=== PATIENT | male | born 1960 | race Caucasian/White ===

== ENCOUNTER 2020-12-12 16:19 | Inpatient (IN) | payer MEDICAID ==
[~2020-12-12] VITALS: Ht 165.1 cm; Wt 83.9 kg
[2020-12-12 17:27] LABS: HEMATOCRIT. 45.1 % (42.0-52.0); HEMOGLOBIN. 15.1 g/dL (14.0-18.0); LYMPHOCYTES % 23.7 % (20.0-50.0); MEAN CORPUSCULAR HEMOGLOBIN 29.1 pg (28.0-32.0); MEAN CORPUSCULAR VOLUME 86.8 fL (80.0-94.0); MEAN PLATELET VOLUME 8.1 fl (7.4-10.4); NEUTROPHILS % 65.3 % (40.0-76.0); PLATELET 230 x1000/uL (130-400); RED CELL DISTRIBUTION WIDTH 14.3 % (11.6-14.6)
[2020-12-12 17:32] LABS: CHLORIDE 106 mEq/L (98-107)
[2020-12-12 17:35] LABS: PROTHROMBIN TIME 10.7 sec (9.6-11.0)
[2020-12-12 17:36] LABS: ETHANOL BLOOD < 10 mg/dL
[2020-12-12 17:40] LABS: CREATINE KINASE 206 IU/L (39-308)
[2020-12-12 17:45] LABS: CLARITY URINE CLEAR (CLEAR); COLOR URINE YELLOW (YELLOW); KETONES URINE NEGATIVE (NEGATIVE); LEUKOCYTE ESTERASE URINE NEGATIVE (NEGATIVE); NITRITE URINE NEGATIVE (NEGATIVE); OCCULT BLOOD URINE NEGATIVE (NEGATIVE); PROTEIN URINE NEGATIVE (NEGATIVE); SPECIFIC GRAVITY URINE 1.014 (1.005-1.030)
[2020-12-12 17:53] LABS: *BARBITURATES SCREEN URINE NEGATIVE (NEGATIVE); *BENZODIAZEPINES SCREEN URINE NEGATIVE (NEGATIVE); CANNABINOID URINE SCREEN NEGATIVE (NEGATIVE); METHADONE URINE SCREEN NEGATIVE (NEGATIVE)
[2020-12-12 17:55] LABS: *AMPHETAMINES SCREEN URINE NEGATIVE (NEGATIVE); *COCAINE SCREEN URINE NEGATIVE (NEGATIVE); OPIATES URINE SCREEN PRESUMTIVE POSITIVE (NEGATIVE); PHENCYCLIDINE URINE SCREEN NEGATIVE (NEGATIVE)
[2020-12-12] MEDS ORDERED: SODIUM CHLORIDE 0.9% 500 ML IV ONE (18:00)
[2020-12-12] MEDS ORDERED: MAGNESIUM/ALUMINUM HYDROXIDE/SIMETHICONE 30ML UDC PO PRN (20:30)
[2020-12-12] MEDS ORDERED: CLONIDINE 0.1MG TABLET PO PRN (20:30)
[2020-12-12] MEDS ORDERED: IPRATROPIUM/ALBUTEROL 0.5-3(2.5)MG/3ML NEB NEB PRN (20:30)
[2020-12-12] MEDS ORDERED: GUAIFENESIN 200MG/10ML SUGAR FREE UDC PO PRN (20:30)
[2020-12-12] MEDS ORDERED: DOCUSATE SODIUM 100MG CAPSULE PO PRN (20:30)
[2020-12-12] MEDS ORDERED: DEXTROSE 50% WATER 50ML SYRINGE IV PRN (20:30)
[2020-12-12] MEDS ORDERED: NITROGLYCERIN 0.4MG TABLET SL SL PRN (20:30)
[2020-12-12] MEDS ORDERED: ONDANSETRON HCL 4MG/2ML INJ IV PRN (20:30)
[2020-12-12] MEDS ORDERED: ACETAMINOPHEN 325MG TABLET PO PRN (20:30)
[2020-12-12] MEDS: KETOROLAC 15MG/ML VIAL IV PRN (20:54)
[2020-12-12] MEDS: BLOOD SUGAR DIAGNOSTIC STRIP TEST SCH (21:00)
[2020-12-12] MEDS: INSULIN LISPRO 100 UNITS/ML SUBCUT SCH (21:00)
[2020-12-12 22:15] LABS: T4 FREE 0.84 ng/dL (0.76-1.46)
[2020-12-12] MEDS: FAMOTIDINE 20MG TABLET PO SCH (22:55)
[2020-12-12] MEDS: ASCORBIC ACID 500 MG TABLET PO SCH (22:55)
[2020-12-12] MEDS: CEFTRIAXONE 1,000 MG in DEXTROSE 5% WATER 50 ML IV SCH (22:56)
[2020-12-12] MEDS: ENOXAPARIN 40MG/0.4ML SYR SUBCUT SCH (22:56)
[2020-12-12 22:58] LABS: FOLIC ACID (FOLATE) SERUM 13.7 ng/mL (>5.38)
[2020-12-13] VITALS (7 sets, daily range): BP systolic 106–131; BP diastolic 63–87
[2020-12-13] MEDS: ACETAMINOPHEN 325MG TABLET PO PRN (01:05)
[2020-12-13] MEDS: AZITHROMYCIN 500 MG in DEXT 5% WATER 250 ML IV SCH ×2 (01:05→21:22)
[2020-12-13] MEDS ORDERED: NA P230E RC (03:14)
[2020-12-13] MEDS ORDERED: MOM MT (03:14)
[2020-12-13] MEDS ORDERED: CLON0.1T PO (03:14)
[2020-12-13] MEDS ORDERED: LISI10TA26 MT (03:14)
[2020-12-13] MEDS ORDERED: GLIM4TAB36 MT (03:14)
[2020-12-13] MEDS ORDERED: SUMA50TA16 PO (03:14)
[2020-12-13] MEDS ORDERED: ATOR40TA70 MT (03:14)
[2020-12-13] MEDS ORDERED: ESCI10TA MT (03:14)
[2020-12-13] MEDS ORDERED: TEMA15CA5 MT (03:14)
[2020-12-13] MEDS ORDERED: MULT-624 PO (03:14)
[2020-12-13] MEDS ORDERED: BISA10SU62 RC (03:14)
[2020-12-13] MEDS ORDERED: CLOP75TA33 PO (03:14)
[2020-12-13] MEDS ORDERED: HYDR-4001 PO (03:14)
[2020-12-13] MEDS ORDERED: TOPUD PO (03:14)
[2020-12-13] MEDS ORDERED: METF-874 MT (03:14)
[2020-12-13] MEDS: BLOOD SUGAR DIAGNOSTIC STRIP TEST SCH ×4 (06:35→21:16)
[2020-12-13] MEDS: INSULIN LISPRO 100 UNITS/ML SUBCUT SCH ×4 (06:36→20:38)
[2020-12-13 07:21] LABS: BASOPHILS % 1.2 % (0.0-2.0); EOSINOPHILS % 4.8 % (0.0-5.0); HEMATOCRIT. 40.8 % (42.0-52.0); HEMOGLOBIN. 13.8 g/dL (14.0-18.0); LYMPHOCYTES % 34.2 % (20.0-50.0); MEAN CORPUSCULAR HEMOGLOBIN 29.3 pg (28.0-32.0); MEAN CORPUSCULAR VOLUME 86.7 fL (80.0-94.0); MEAN PLATELET VOLUME 8.6 fl (7.4-10.4); MONOCYTES % 8.1 % (2.0-8.0); NEUTROPHILS % 51.7 % (40.0-76.0); PLATELET 214 x1000/uL (130-400); RED BLOOD CELL COUNT 4.71 mill/uL (4.7-6.1)
[2020-12-13 07:38] LABS: CHLORIDE 111 mEq/L (98-107)
[2020-12-13 07:55] LABS: PHOSPHORUS 3.6 mg/dL (2.5-4.9)
[2020-12-13 07:58] LABS: CREATINE KINASE 155 IU/L (39-308)
[2020-12-13 08:00] LABS: CREATINE KINASE MB FRACTION 5.4 ng/mL (0.5-3.6)
[2020-12-13] MEDS ORDERED: PNEUMOCOCCAL 23-VAL P-SAC VAC 0.5 ML IM ONE (08:00)
[2020-12-13] MEDS: ASPIRIN 325MG EC TABLET PO SCH (08:52)
[2020-12-13] MEDS: ZINC SULFATE 220 MG ( 50 ) CAPSULE PO SCH (08:52)
[2020-12-13] MEDS: ASCORBIC ACID 500 MG TABLET PO SCH ×2 (08:52→20:39)
[2020-12-13] MEDS: FAMOTIDINE 20MG TABLET PO SCH ×2 (08:53→20:39)
[2020-12-13] MEDS: CHOLECALCIFEROL (D3) 1000 UNIT TABLET PO SCH (08:53)
[2020-12-13] MEDS ORDERED: CEFTRIAXONE 1 G PREMIX 50 ML IV SCH (09:00)
[2020-12-13] MEDS: KETOROLAC 15MG/ML VIAL IV PRN (10:00)
[2020-12-13] MEDS: ENOXAPARIN 40MG/0.4ML SYR SUBCUT SCH (20:39)
[2020-12-13] MEDS: CEFTRIAXONE 1,000 MG in DEXTROSE 5% WATER 50 ML IV SCH (20:39)
[2020-12-14] VITALS: BP 120/80
[2020-12-14 04:00] VITALS: BP 109/75
[2020-12-14] MEDS: KETOROLAC 15MG/ML VIAL IV PRN ×3 (04:50→20:13)
[2020-12-14] MEDS: BLOOD SUGAR DIAGNOSTIC STRIP TEST SCH ×4 (06:12→20:13)
[2020-12-14] MEDS: INSULIN LISPRO 100 UNITS/ML SUBCUT SCH ×4 (07:35→20:13)
[2020-12-14 08:00] VITALS: BP 110/85
[2020-12-14] MEDS: FAMOTIDINE 20MG TABLET PO SCH ×2 (09:11→20:11)
[2020-12-14] MEDS: ZINC SULFATE 220 MG ( 50 ) CAPSULE PO SCH (09:11)
[2020-12-14] MEDS: ASCORBIC ACID 500 MG TABLET PO SCH ×2 (09:11→20:11)
[2020-12-14] MEDS: ASPIRIN 325MG EC TABLET PO SCH (09:11)
[2020-12-14] MEDS: CHOLECALCIFEROL (D3) 1000 UNIT TABLET PO SCH (09:27)
[2020-12-14 12:00] VITALS: BP 135/84
[2020-12-14] MEDS ORDERED: LACTULOSE 20G/30ML UDC PO SCH (14:00)
[2020-12-14 16:00] VITALS: BP 131/80
[2020-12-14] MEDS ORDERED: LACTULOSE 20G/30ML UDC PO PRN (18:30)
[2020-12-14 20:00] VITALS: BP 116/72
[2020-12-14] MEDS: CEFTRIAXONE 1,000 MG in DEXTROSE 5% WATER 50 ML IV SCH (20:11)
[2020-12-14] MEDS: AZITHROMYCIN 500 MG in DEXT 5% WATER 250 ML IV SCH (22:15)
[2020-12-14] MEDS: ENOXAPARIN 40MG/0.4ML SYR SUBCUT SCH (22:15)
[2020-12-15] VITALS: BP 106/63
[2020-12-15 04:00] VITALS: BP 115/84
[2020-12-15] MEDS: BLOOD SUGAR DIAGNOSTIC STRIP TEST SCH ×4 (07:20→20:40)
[2020-12-15] MEDS: INSULIN LISPRO 100 UNITS/ML SUBCUT SCH ×4 (07:50→20:40)
[2020-12-15 08:00] VITALS: BP 140/84
[2020-12-15] MEDS: FAMOTIDINE 20MG TABLET PO SCH ×2 (09:31→20:37)
[2020-12-15] MEDS: ASCORBIC ACID 500 MG TABLET PO SCH ×2 (09:31→20:37)
[2020-12-15] MEDS: CHOLECALCIFEROL (D3) 1000 UNIT TABLET PO SCH (09:31)
[2020-12-15] MEDS: ZINC SULFATE 220 MG ( 50 ) CAPSULE PO SCH (09:31)
[2020-12-15] MEDS: KETOROLAC 15MG/ML VIAL IV PRN ×2 (09:51→20:40)
[2020-12-15] MEDS: ASPIRIN 325MG EC TABLET PO SCH (09:58)
[2020-12-15 12:00] VITALS: BP 144/91
[2020-12-15 16:00] VITALS: BP 142/96
[2020-12-15 20:00] VITALS: BP 113/71
[2020-12-15] MEDS: CEFTRIAXONE 1,000 MG in DEXTROSE 5% WATER 50 ML IV SCH (20:38)
[2020-12-15] MEDS: ENOXAPARIN 40MG/0.4ML SYR SUBCUT SCH (20:38)
[2020-12-15] MEDS: AZITHROMYCIN 500 MG in DEXT 5% WATER 250 ML IV SCH (21:43)
[2020-12-15] MEDS: ZOLPIDEM TARTRATE 5MG TABLET PO PRN (22:54)
[2020-12-16] VITALS: BP 125/89
[2020-12-16 04:00] VITALS: BP 119/83
[2020-12-16] MEDS: INSULIN LISPRO 100 UNITS/ML SUBCUT SCH ×4 (06:40→20:56)
[2020-12-16] MEDS: BLOOD SUGAR DIAGNOSTIC STRIP TEST SCH ×4 (06:40→20:30)
[2020-12-16 08:00] VITALS: BP 119/82
[2020-12-16] MEDS: KETOROLAC 15MG/ML VIAL IV PRN ×3 (08:22→20:29)
[2020-12-16] MEDS: ASCORBIC ACID 500 MG TABLET PO SCH ×2 (08:23→20:29)
[2020-12-16] MEDS: ZINC SULFATE 220 MG ( 50 ) CAPSULE PO SCH (08:23)
[2020-12-16] MEDS: ASPIRIN 325MG EC TABLET PO SCH (08:23)
[2020-12-16] MEDS: CHOLECALCIFEROL (D3) 1000 UNIT TABLET PO SCH (08:23)
[2020-12-16] MEDS: FAMOTIDINE 20MG TABLET PO SCH ×2 (08:23→20:29)
[2020-12-16 12:00] VITALS: BP 140/91
[2020-12-16 16:00] VITALS: BP 138/87
[2020-12-16] MEDS ORDERED: AZITHROMYCIN 500 MG TABLET PO SCH (17:00)
[2020-12-16 20:00] VITALS: BP 126/79
[2020-12-16] MEDS: CEFTRIAXONE 1,000 MG in DEXTROSE 5% WATER 50 ML IV SCH (20:29)
[2020-12-16] MEDS: ENOXAPARIN 40MG/0.4ML SYR SUBCUT SCH (20:30)
[2020-12-16] MEDS: ZOLPIDEM TARTRATE 5MG TABLET PO PRN (20:49)
[2020-12-17] VITALS: BP 116/73
[2020-12-17 04:00] VITALS: BP 109/59
[2020-12-17] MEDS: BLOOD SUGAR DIAGNOSTIC STRIP TEST SCH ×2 (07:31→12:53)
[2020-12-17] MEDS: INSULIN LISPRO 100 UNITS/ML SUBCUT SCH ×2 (07:31→12:50)
[2020-12-17] MEDS: CHOLECALCIFEROL (D3) 1000 UNIT TABLET PO SCH (08:09)
[2020-12-17] MEDS: ZINC SULFATE 220 MG ( 50 ) CAPSULE PO SCH (08:09)
[2020-12-17] MEDS: ASPIRIN 325MG EC TABLET PO SCH (08:09)
[2020-12-17] MEDS: ASCORBIC ACID 500 MG TABLET PO SCH (08:09)
[2020-12-17] MEDS: FAMOTIDINE 20MG TABLET PO SCH (08:09)
[2020-12-17] MEDS: KETOROLAC 15MG/ML VIAL IV PRN ×2 (08:10→14:28)
[2020-12-17 08:12] VITALS: BP 135/79
[2020-12-17] MEDS: ACETAMINOPHEN 325MG TABLET PO PRN (11:45)
[2020-12-17 12:18] VITALS: BP 138/93
[2020-12-17 15:06] VITALS: BP 135/79
[2020-12-17 16:00] VITALS: BP 141/91
== END 2020-12-17 16:55 | DRG 720 ==
LOC: ER 16:19 → MICUSO 18:17 → 6WST 21:51
PROVIDERS: ADMIT Internal Medicine; ATTEND Internal Medicine
DX: A41.9 Sepsis, unspecified organism (principal); I69.351 Hemiplegia and hemiparesis following cerebral infarction affecting right dominant side; E11.9 Type 2 diabetes mellitus without complications; E78.00 Pure hypercholesterolemia, unspecified; Z20.822 Contact with and (suspected) exposure to COVID-19; I10 Essential (primary) hypertension; Z79.4 Long term (current) use of insulin
CPT/HCPCS: 36415; 70551; 71045; 80053; 80305; 80320; 81003; 82140; 82550; 82553; 82607; 82746; 82962; 83036; 83540; 83550; 83605; 83615; 83880; 84100; 84145; 84439; 84443; 84484; 85025; 86850; 86900; 87426; 93005; 93970; 97162; 97166; 99285; J0456; J0696; J1650; J1815; J1885; J7040; J7060; G0480

== ENCOUNTER 2021-02-14 10:09 | Inpatient (IN) | payer MEDICAID ==
[~2021-02-14] VITALS: Ht 170.2 cm; Wt 71.7 kg
[~2021-02-14 10:09] MED LIST: ATOR40TA70 MT; BISA10SU62 RC; CLON0.1T PO; CLOP75TA33 PO; ESCI10TA MT; GLIM4TAB36 MT; HYDR-4001 PO; LISI10TA26 MT; METF-874 MT; MOM MT; MULT-624 PO; NA P230E RC; SUMA50TA16 PO; TEMA15CA5 MT; TOPUD PO
[2021-02-14 11:16] LABS: BASOPHILS % 2.2 % (0.0-2.0); EOSINOPHILS % 9.4 % (0.0-5.0); HEMATOCRIT. 41.3 % (42.0-52.0); LYMPHOCYTES % 32.3 % (20.0-50.0); MEAN CORPUSCULAR HEMOGLOBIN 29.1 pg (28.0-32.0); MEAN CORPUSCULAR VOLUME 85.9 fL (80.0-94.0); MEAN PLATELET VOLUME 8.5 fl (7.4-10.4); MONOCYTES % 5.9 % (2.0-8.0); NEUTROPHILS % 50.2 % (40.0-76.0); PLATELET 241 x1000/uL (130-400); RED BLOOD CELL COUNT 4.82 mill/uL (4.7-6.1); RED CELL DISTRIBUTION WIDTH 13.9 % (11.6-14.6)
[2021-02-14 11:22] LABS: CHLORIDE 105 mEq/L (98-107)
[2021-02-14 11:28] LABS: ETHANOL BLOOD < 10 mg/dL
[2021-02-14] MEDS ORDERED: MORPHINE SULFATE 4 MG/ML CPJ (NOT FOR IM USE) IV ONE (12:00)
[2021-02-14] MEDS ORDERED: ACETAMINOPHEN 325MG TABLET PO ONE (12:00)
[2021-02-14 12:29] LABS: *BARBITURATES SCREEN URINE NEGATIVE (NEGATIVE)
[2021-02-14 12:30] LABS: CANNABINOID URINE SCREEN NEGATIVE (NEGATIVE); PHENCYCLIDINE URINE SCREEN NEGATIVE (NEGATIVE)
[2021-02-14 12:32] LABS: *AMPHETAMINES SCREEN URINE NEGATIVE (NEGATIVE); *BENZODIAZEPINES SCREEN URINE NEGATIVE (NEGATIVE)
[2021-02-14 12:34] LABS: METHADONE URINE SCREEN NEGATIVE (NEGATIVE)
[2021-02-14 12:37] LABS: *COCAINE SCREEN URINE NEGATIVE (NEGATIVE); OPIATES URINE SCREEN PRESUMTIVE POSITIVE (NEGATIVE)
[2021-02-14] MEDS ORDERED: ASPIRIN 81MG TABLET PO NR (14:00)
[2021-02-14 21:05] VITALS: BP 122/80
[2021-02-14] MEDS: MORPHINE SULFATE 2 MG/ML CPJ (NOT FOR IM USE) IV PRN (21:56)
[2021-02-15] VITALS: BP 112/76
[2021-02-15] MEDS ORDERED: NITROGLYCERIN 0.4MG TABLET SL SL PRN
[2021-02-15] MEDS ORDERED: NALOXONE HCL 0.4 MG/ML 1ML VIAL IV PRN (00:30)
[2021-02-15] MEDS ORDERED: BRIM.2 BOTHEYE (01:11)
[2021-02-15] MEDS ORDERED: ASPI-1497 PO (01:12)
[2021-02-15 04:00] VITALS: BP 104/65
[2021-02-15] MEDS: MORPHINE SULFATE 2 MG/ML CPJ (NOT FOR IM USE) IV PRN ×2 (06:18→15:51)
[2021-02-15] MEDS: BLOOD SUGAR DIAGNOSTIC STRIP TEST SCH ×5 (06:53→21:26)
[2021-02-15] MEDS: INSULIN LISPRO 100 UNITS/ML SUBCUT SCH ×4 (06:59→21:00)
[2021-02-15 07:21] LABS: BASOPHILS % 1.2 % (0.0-2.0); EOSINOPHILS % 8.1 % (0.0-5.0); HEMATOCRIT. 43.8 % (42.0-52.0); HEMOGLOBIN. 14.8 g/dL (14.0-18.0); LYMPHOCYTES % 33.4 % (20.0-50.0); MEAN CORPUSCULAR HEMOGLOBIN 29.4 pg (28.0-32.0); MEAN CORPUSCULAR VOLUME 87.2 fL (80.0-94.0); MEAN PLATELET VOLUME 8.9 fl (7.4-10.4); MONOCYTES % 9.8 % (2.0-8.0); NEUTROPHILS % 47.5 % (40.0-76.0); PLATELET 222 x1000/uL (130-400); RED BLOOD CELL COUNT 5.03 mill/uL (4.7-6.1)
[2021-02-15 07:34] LABS: CHLORIDE 106 mEq/L (98-107)
[2021-02-15 07:42] LABS: HDL CHOLESTEROL 42 mg/dL (40-59); LDL CHOLESTEROL 67 mg/dL (5-100)
[2021-02-15] MEDS: BRIMONIDINE 0.2% OPHTH DROPS 5ML BOTHEYE SCH (07:58)
[2021-02-15 08:00] VITALS: BP 120/76
[2021-02-15] MEDS: FAMOTIDINE 20MG TABLET PO SCH (08:00)
[2021-02-15] MEDS: ASPIRIN 81MG TABLET PO SCH (08:01)
[2021-02-15] MEDS: METFORMIN HCL 500MG TABLET PO SCH ×2 (08:01→17:01)
[2021-02-15] MEDS: METOPROLOL TARTRATE 25MG TABLET PO SCH ×2 (08:01→21:26)
[2021-02-15] MEDS: LISINOPRIL 10MG TABLET PO SCH (08:01)
[2021-02-15] MEDS: ENOXAPARIN 40MG/0.4ML SYR SUBCUT SCH (08:02)
[2021-02-15] MEDS ORDERED: NON FORMULARY PATIENT HOME MED PO SCH (09:00)
[2021-02-15 11:48] VITALS: BP 116/72
[2021-02-15] MEDS ORDERED: INFLUENZA VACCINE 05/PF 0.5 ML SYRINGE IM ONE (12:00)
[2021-02-15] MEDS: HYDROCODONE/ACETAMINOPHEN 10/325MG TABLET PO PRN (13:28)
[2021-02-15 15:44] VITALS: BP 122/78
[2021-02-15] MEDS ORDERED: ONDANSETRON HCL 4MG/2ML INJ IV PRN (17:00)
[2021-02-15] MEDS ORDERED: MAGNESIUM/ALUMINUM HYDROXIDE/SIMETHICONE 30ML UDC PO PRN (17:00)
[2021-02-15] MEDS ORDERED: DEXTROSE 50% WATER 50ML SYRINGE IV PRN ×2 (17:00)
[2021-02-15] MEDS ORDERED: DOCUSATE SODIUM 100MG CAPSULE PO PRN (17:00)
[2021-02-15] MEDS ORDERED: ACETAMINOPHEN 325MG TABLET PO PRN (17:00)
[2021-02-15] MEDS ORDERED: CLONIDINE 0.1MG TABLET PO PRN ×2 (17:00)
[2021-02-15 20:00] VITALS: BP 112/69
[2021-02-15] MEDS: ATORVASTATIN CALCIUM 40MG TABLET PO SCH (21:26)
[2021-02-16] VITALS: BP 105/61
[2021-02-16] MEDS: TEMAZEPAM 15MG CAPSULE PO PRN ×2 (02:37→21:41)
[2021-02-16 04:00] VITALS: BP 106/64
[2021-02-16 05:46] LABS: BASOPHILS % 1.8 % (0.0-2.0); EOSINOPHILS % 8.3 % (0.0-5.0); HEMATOCRIT. 48.3 % (42.0-52.0); HEMOGLOBIN. 16.1 g/dL (14.0-18.0); LYMPHOCYTES % 30.2 % (20.0-50.0); MEAN CORPUSCULAR HEMOGLOBIN 29.1 pg (28.0-32.0); MEAN CORPUSCULAR VOLUME 87.6 fL (80.0-94.0); MEAN PLATELET VOLUME 8.6 fl (7.4-10.4); NEUTROPHILS % 52.7 % (40.0-76.0); PLATELET 241 x1000/uL (130-400); RED BLOOD CELL COUNT 5.52 mill/uL (4.7-6.1); RED CELL DISTRIBUTION WIDTH 14.4 % (11.6-14.6)
[2021-02-16] MEDS: BLOOD SUGAR DIAGNOSTIC STRIP TEST SCH ×4 (06:33→21:00)
[2021-02-16 06:34] LABS: CHLORIDE 103 mEq/L (98-107)
[2021-02-16 06:41] LABS: LDL CHOLESTEROL 77 mg/dL (5-100)
[2021-02-16 06:42] LABS: HDL CHOLESTEROL 46 mg/dL (40-59)
[2021-02-16 06:43] LABS: T4 FREE 0.97 ng/dL (0.76-1.46)
[2021-02-16] MEDS: INSULIN LISPRO 100 UNITS/ML SUBCUT SCH ×4 (07:00→21:21)
[2021-02-16 07:33] VITALS: BP 117/76
[2021-02-16] MEDS: FAMOTIDINE 20MG TABLET PO SCH (08:44)
[2021-02-16] MEDS: BRIMONIDINE 0.2% OPHTH DROPS 5ML BOTHEYE SCH (08:44)
[2021-02-16] MEDS: METFORMIN HCL 500MG TABLET PO SCH ×2 (08:44→16:54)
[2021-02-16] MEDS: LISINOPRIL 10MG TABLET PO SCH (08:45)
[2021-02-16] MEDS: CLOPIDOGREL 75MG TABLET PO SCH (08:45)
[2021-02-16] MEDS: ASPIRIN 81MG TABLET PO SCH (08:45)
[2021-02-16] MEDS: METOPROLOL TARTRATE 25MG TABLET PO SCH ×2 (08:47→20:40)
[2021-02-16] MEDS: MULTIVITAMINS,THER W-MINERALS TABLET PO SCH (08:47)
[2021-02-16] MEDS: ENOXAPARIN 40MG/0.4ML SYR SUBCUT SCH (08:48)
[2021-02-16] MEDS ORDERED: ASPIRIN 81MG EC TABLET PO SCH (09:00)
[2021-02-16] MEDS ORDERED: SEVELAMER CARBONATE 800 MG TABLET PO SCH (09:00)
[2021-02-16 11:37] VITALS: BP 120/76
[2021-02-16] MEDS ORDERED: MORPHINE SULFATE 2 MG/ML CPJ (NOT FOR IM USE) IV PRN (14:15)
[2021-02-16] MEDS ORDERED: TRAMADOL 50MG TABLET PO PRN (15:15)
[2021-02-16 15:49] VITALS: BP 112/70
[2021-02-16 20:00] VITALS: BP 107/61
[2021-02-16] MEDS: ATORVASTATIN CALCIUM 40MG TABLET PO SCH (21:41)
[2021-02-17] VITALS: BP 108/75
[2021-02-17 04:00] VITALS: BP 123/81
[2021-02-17] MEDS: BLOOD SUGAR DIAGNOSTIC STRIP TEST SCH ×4 (06:32→21:05)
[2021-02-17 06:38] LABS: BASOPHILS % 0.7 % (0.0-2.0); EOSINOPHILS % 7.4 % (0.0-5.0); HEMATOCRIT. 48.1 % (42.0-52.0); HEMOGLOBIN. 16.4 g/dL (14.0-18.0); LYMPHOCYTES % 28.8 % (20.0-50.0); MEAN CORPUSCULAR HEMOGLOBIN 29.6 pg (28.0-32.0); MEAN CORPUSCULAR VOLUME 87.1 fL (80.0-94.0); MONOCYTES % 7.4 % (2.0-8.0); NEUTROPHILS % 55.7 % (40.0-76.0); RED BLOOD CELL COUNT 5.52 mill/uL (4.7-6.1); RED CELL DISTRIBUTION WIDTH 13.9 % (11.6-14.6)
[2021-02-17 06:40] LABS: CHLORIDE 103 mEq/L (98-107)
[2021-02-17 07:03] LABS: PHOSPHORUS 3.9 mg/dL (2.5-4.9)
[2021-02-17] MEDS: INSULIN LISPRO 100 UNITS/ML SUBCUT SCH ×4 (07:50→21:00)
[2021-02-17 08:06] VITALS: BP 138/80
[2021-02-17] MEDS: CLOPIDOGREL 75MG TABLET PO SCH (09:14)
[2021-02-17] MEDS: ASPIRIN 81MG TABLET PO SCH (09:14)
[2021-02-17] MEDS: METOPROLOL TARTRATE 25MG TABLET PO SCH ×2 (09:14→21:04)
[2021-02-17] MEDS: MULTIVITAMINS,THER W-MINERALS TABLET PO SCH (09:15)
[2021-02-17] MEDS: LISINOPRIL 10MG TABLET PO SCH (09:15)
[2021-02-17] MEDS: FAMOTIDINE 20MG TABLET PO SCH (09:15)
[2021-02-17] MEDS: ENOXAPARIN 40MG/0.4ML SYR SUBCUT SCH (09:15)
[2021-02-17] MEDS: METFORMIN HCL 500MG TABLET PO SCH ×2 (09:15→18:00)
[2021-02-17 11:18] LABS: PLATELET 247 x1000/uL (130-400)
[2021-02-17] MEDS: HYDROCODONE/ACETAMINOPHEN 10/325MG TABLET PO PRN (11:25)
[2021-02-17] MEDS: BRIMONIDINE 0.2% OPHTH DROPS 5ML BOTHEYE SCH (11:49)
[2021-02-17 12:20] VITALS: BP 129/92
[2021-02-17] MEDS ORDERED: SUMATRIPTAN SUCCINATE 6MG/0.5ML VIAL SUBCUT NR (13:30)
[2021-02-17 16:00] VITALS: BP 101/75
[2021-02-17 19:55] VITALS: BP 123/77
[2021-02-17] MEDS: ATORVASTATIN CALCIUM 40MG TABLET PO SCH (21:05)
[2021-02-17] MEDS: TEMAZEPAM 15MG CAPSULE PO PRN (21:11)
[2021-02-18] VITALS: BP 97/65
[2021-02-18 04:00] VITALS: BP 102/59
[2021-02-18] MEDS: BLOOD SUGAR DIAGNOSTIC STRIP TEST SCH ×3 (07:40→17:29)
[2021-02-18 08:00] VITALS: BP 95/64
[2021-02-18] MEDS: INSULIN LISPRO 100 UNITS/ML SUBCUT SCH (08:10)
[2021-02-18] MEDS: MULTIVITAMINS,THER W-MINERALS TABLET PO SCH (08:10)
[2021-02-18] MEDS: ASPIRIN 81MG TABLET PO SCH (08:10)
[2021-02-18] MEDS: ENOXAPARIN 40MG/0.4ML SYR SUBCUT SCH (08:10)
[2021-02-18] MEDS: METFORMIN HCL 500MG TABLET PO SCH ×2 (08:10→17:29)
[2021-02-18] MEDS: FAMOTIDINE 20MG TABLET PO SCH (08:11)
[2021-02-18] MEDS: CLOPIDOGREL 75MG TABLET PO SCH (08:13)
[2021-02-18] MEDS: METOPROLOL TARTRATE 25MG TABLET PO SCH (08:20)
[2021-02-18] MEDS: LISINOPRIL 10MG TABLET PO SCH (08:21)
[2021-02-18] MEDS: BRIMONIDINE 0.2% OPHTH DROPS 5ML BOTHEYE SCH (09:48)
[2021-02-18] MEDS: HYDROCODONE/ACETAMINOPHEN 10/325MG TABLET PO PRN (09:48)
[2021-02-18] MEDS ORDERED: LORAZEPAM 2MG/ML CPJ IV SCH (10:15)
[2021-02-18 12:00] VITALS: BP 100/75
[2021-02-18 16:00] VITALS: BP 127/88
[2021-02-18 16:35] VITALS: BP 100/75
== END 2021-02-18 19:05 | DRG 54 ==
LOC: ER 10:33 → 6WST 13:47 → EDBEDREQ 14:07 → EDBEDREQTM 14:07 → ENRESERV 20:20 → 7WST 02-17 20:01
PROVIDERS: ADMIT Internal Medicine; ATTEND Internal Medicine
DX: G43.909 Migraine, unspecified, not intractable, without status migrainosus (principal); I69.351 Hemiplegia and hemiparesis following cerebral infarction affecting right dominant side; E78.5 Hyperlipidemia, unspecified; I10 Essential (primary) hypertension; E11.9 Type 2 diabetes mellitus without complications; E78.00 Pure hypercholesterolemia, unspecified; F17.200 Nicotine dependence, unspecified, uncomplicated; R07.89 Other chest pain; Z79.891 Long term (current) use of opiate analgesic; Z79.899 Other long term (current) drug therapy
CPT/HCPCS: 36415; 70551; 71045; 72141; 80048; 80053; 80061; 80076; 80305; 80320; 82962; 83036; 83735; 83880; 84100; 84439; 84443; 84484; 85025; 93005; 93306; 93880; 93970; 99285; J1650; J1815; J2060; J2270; J3030; G0480

== ENCOUNTER 2021-04-15 14:31 | Inpatient (IN) | payer MEDICAID ==
[~2021-04-15] VITALS: Ht 167.6 cm; Wt 88.9 kg
[~2021-04-15 14:31] MED LIST changes: +ASPI-1497 PO; +BRIM.2 BOTHEYE
[2021-04-15] MEDS ORDERED: DEXTROSE 50% WATER 50ML SYRINGE IV ONE (15:45)
[2021-04-15 15:54] LABS: BASOPHILS % 1.5 % (0.0-2.0); HEMATOCRIT. 43.4 % (42.0-52.0); HEMOGLOBIN. 14.4 g/dL (14.0-18.0); LYMPHOCYTES % 28.9 % (20.0-50.0); MEAN CORPUSCULAR HEMOGLOBIN 28.8 pg (28.0-32.0); MEAN CORPUSCULAR VOLUME 87.1 fL (80.0-94.0); MEAN PLATELET VOLUME 8.7 fl (7.4-10.4); MONOCYTES % 7.2 % (2.0-8.0); NEUTROPHILS % 54.4 % (40.0-76.0); PLATELET 265 x1000/uL (130-400); RED BLOOD CELL COUNT 4.99 mill/uL (4.7-6.1); RED CELL DISTRIBUTION WIDTH 14.1 % (11.6-14.6)
[2021-04-15 16:03] LABS: CHLORIDE 104 mEq/L (98-107)
[2021-04-15 16:05] LABS: ETHANOL BLOOD < 10 mg/dL
[2021-04-15 16:51] LABS: CLARITY URINE CLOUDY (CLEAR); COLOR URINE YELLOW (YELLOW); KETONES URINE NEGATIVE (NEGATIVE); LEUKOCYTE ESTERASE URINE TRACE (NEGATIVE); NITRITE URINE NEGATIVE (NEGATIVE); OCCULT BLOOD URINE 3+ (NEGATIVE); PH URINE 5.5 (4.5-8.0); PROTEIN URINE TRACE (NEGATIVE); SPECIFIC GRAVITY URINE 1.043 (1.005-1.030); UROBILINOGEN URINE 0.2 E.U./dL (0.2-1.0)
[2021-04-15] MEDS ORDERED: DIPHENHYDRAMINE 50MG/ML VIAL IV ONE (17:00)
[2021-04-15] MEDS ORDERED: METOCLOPRAMIDE HCL 10MG/2ML VIAL IV ONE (17:00)
[2021-04-15 17:09] LABS: *AMPHETAMINES SCREEN URINE NEGATIVE (NEGATIVE); *BARBITURATES SCREEN URINE NEGATIVE (NEGATIVE); *BENZODIAZEPINES SCREEN URINE NEGATIVE (NEGATIVE); *COCAINE SCREEN URINE NEGATIVE (NEGATIVE); METHADONE URINE SCREEN NEGATIVE (NEGATIVE); OPIATES URINE SCREEN PRESUMTIVE POSITIVE (NEGATIVE)
[2021-04-15 17:10] LABS: CANNABINOID URINE SCREEN NEGATIVE (NEGATIVE); PHENCYCLIDINE URINE SCREEN NEGATIVE (NEGATIVE)
[2021-04-15] MEDS ORDERED: LORAZEPAM 2MG/ML CPJ IV ONE (18:30)
[2021-04-15 20:21] VITALS: BP 109/65
[2021-04-15 21:36] VITALS: BP 109/65
[2021-04-15] MEDS ORDERED: IOHEXOL-350 100 ML BOTTLE ONE (23:31)
[2021-04-16 00:24] VITALS: BP 97/60
[2021-04-16 04:00] VITALS: BP 98/55
[2021-04-16 07:07] LABS: CHLORIDE 106 mEq/L (98-107)
[2021-04-16 07:17] LABS: HDL CHOLESTEROL 41 mg/dL (40-59); LDL CHOLESTEROL 55 mg/dL (5-100)
[2021-04-16] MEDS ORDERED: LACT10SO7 PO (07:47)
[2021-04-16] MEDS ORDERED: INSLIS SUBCUT (07:47)
[2021-04-16] MEDS ORDERED: NITR0.4T49 SL (07:47)
[2021-04-16] MEDS ORDERED: METO25TA6 PO (07:47)
[2021-04-16 08:00] VITALS: BP 115/78
[2021-04-16] MEDS: BLOOD SUGAR DIAGNOSTIC STRIP TEST SCH ×4 (08:00→20:00)
[2021-04-16] MEDS: DEXT 5%/0.45% NACL 1000ML 1,000 ML IV SCH ×2 (10:34→21:26)
[2021-04-16] MEDS: ASPIRIN 81MG TABLET PO SCH (11:30)
[2021-04-16 12:00] VITALS: BP 105/69
[2021-04-16] MEDS ORDERED: NALOXONE HCL 0.4MG/ML VIAL IV PRN (12:45)
[2021-04-16] MEDS: LORAZEPAM 2MG/ML CPJ IV PRN (13:01)
[2021-04-16] MEDS: MORPHINE SULFATE 2 MG/ML CPJ (NOT FOR IM USE) IV PRN ×2 (15:02→21:25)
[2021-04-16 16:00] VITALS: BP 107/78
[2021-04-16 20:00] VITALS: BP 101/58
[2021-04-16 22:07] LABS: BASOPHILS % 2.1 % (0.0-2.0); EOSINOPHILS % 8.4 % (0.0-5.0); HEMOGLOBIN. 13.8 g/dL (14.0-18.0); LYMPHOCYTES % 37.7 % (20.0-50.0); MEAN CORPUSCULAR HEMOGLOBIN 29.1 pg (28.0-32.0); MEAN CORPUSCULAR VOLUME 86.7 fL (80.0-94.0); MEAN PLATELET VOLUME 8.3 fl (7.4-10.4); MONOCYTES % 7.8 % (2.0-8.0); PLATELET 245 x1000/uL (130-400); RED BLOOD CELL COUNT 4.73 mill/uL (4.7-6.1)
[2021-04-16 22:09] LABS: CHLORIDE 104 mEq/L (98-107)
[2021-04-17] VITALS (7 sets, daily range): BP systolic 104–139; BP diastolic 60–76
[2021-04-17] MEDS: DEXT 5%/0.45% NACL 1000ML 1,000 ML IV SCH ×2 (06:24→16:30)
[2021-04-17] MEDS: BLOOD SUGAR DIAGNOSTIC STRIP TEST SCH ×5 (08:00→20:00)
[2021-04-17] MEDS: ASPIRIN 81MG TABLET PO SCH (08:47)
[2021-04-17] MEDS ORDERED: TRAMADOL 50MG TABLET PO SCH (12:30)
[2021-04-17] MEDS ORDERED: TRAMADOL 50MG TABLET PO PRN (12:30)
[2021-04-17] MEDS ORDERED: HYDROXYZINE 10 MG TABLET PO PRN (12:45)
[2021-04-17] MEDS ORDERED: MIRTAZAPINE 15MG TABLET PO SCH (21:00)
[2021-04-17] MEDS: LORAZEPAM 2MG/ML CPJ IV PRN (23:40)
[2021-04-18] MEDS: DEXT 5%/0.45% NACL 1000ML 1,000 ML IV SCH (02:30)
[2021-04-18 04:00] VITALS: BP 95/53
[2021-04-18] MEDS: BLOOD SUGAR DIAGNOSTIC STRIP TEST SCH ×2 (04:00)
== END 2021-04-18 06:50 | DRG 52 ==
LOC: ER 14:37 → EDBEDREQTM 17:49 → EDBEDREQSVC 17:49 → EDBEDREQ 17:49 → ENRESERV 19:09 → 6WST 21:15
PROVIDERS: ADMIT Internal Medicine; ATTEND Internal Medicine
DX: G93.49 Other encephalopathy (principal); I69.351 Hemiplegia and hemiparesis following cerebral infarction affecting right dominant side; E11.65 Type 2 diabetes mellitus with hyperglycemia; E78.00 Pure hypercholesterolemia, unspecified; F32.A Depression, unspecified; E78.5 Hyperlipidemia, unspecified; F41.1 Generalized anxiety disorder; G47.00 Insomnia, unspecified; Z20.822 Contact with and (suspected) exposure to COVID-19; I10 Essential (primary) hypertension; M54.2 Cervicalgia; F17.200 Nicotine dependence, unspecified, uncomplicated; R31.9 Hematuria, unspecified; Z79.82 Long term (current) use of aspirin; Z79.899 Other long term (current) drug therapy; Z79.891 Long term (current) use of opiate analgesic; Z79.02 Long term (current) use of antithrombotics/antiplatelets; Z79.4 Long term (current) use of insulin; R51.9 Headache, unspecified
CPT/HCPCS: 36415; 70496; 70498; 70551; 71045; 80048; 80053; 80061; 80305; 80320; 81003; 82962; 83036; 84484; 85025; 87426; 92610; 93005; 93306; 93970; 97162; 99291; J1200; J2060; J2270; J2765; Q9967; G0480

== ENCOUNTER 2021-06-22 17:12 | Emergency (ER) | payer MEDICAID ==
[~2021-06-22] VITALS: Ht 170.2 cm; Wt 76.0 kg
[2021-06-22 18:59] LABS: BASOPHILS % 1.8 % (0.0-2.0); EOSINOPHILS % 9.4 % (0.0-5.0); HEMATOCRIT. 41.2 % (42.0-52.0); HEMOGLOBIN. 13.9 g/dL (14.0-18.0); LYMPHOCYTES % 31.6 % (20.0-50.0); MEAN CORPUSCULAR VOLUME 85.8 fL (80.0-94.0); MEAN PLATELET VOLUME 8.6 fl (7.4-10.4); MONOCYTES % 7.7 % (2.0-8.0); NEUTROPHILS % 49.5 % (40.0-76.0); PLATELET 229 x1000/uL (130-400); RED BLOOD CELL COUNT 4.81 mill/uL (4.7-6.1); RED CELL DISTRIBUTION WIDTH 14.3 % (11.6-14.6)
[2021-06-22 19:06] LABS: CHLORIDE 107 mEq/L (98-107)
[2021-06-22] MEDS ORDERED: ACET-2708 MT (19:39)
[2021-06-22] MEDS ORDERED: HYDROCODONE/ACETAMINOPHEN 5/325MG TABLET PO ONE (19:45)
[2021-06-22 22:56] VITALS: BP 132/76
== END 2021-06-22 23:10 ==
LOC: ER 17:12
DX: M25.571 Pain in right ankle and joints of right foot (principal); I10 Essential (primary) hypertension; F41.9 Anxiety disorder, unspecified; F32.9 Major depressive disorder, single episode, unspecified; E11.9 Type 2 diabetes mellitus without complications; E78.00 Pure hypercholesterolemia, unspecified; Z86.73 Personal history of transient ischemic attack (TIA), and cerebral infarction without residual deficits
CPT/HCPCS: 36415; 73610; 80053; 85025; 93971; 99285

== ENCOUNTER 2021-08-06 19:52 | Inpatient (IN) | payer MEDICAID ==
[~2021-08-06] VITALS: Ht 170.2 cm; Wt 64.4 kg
[~2021-08-06 19:52] MED LIST changes: +ACET-2708 MT; -ASPI-1497 PO; -ATOR40TA70 MT; -BISA10SU62 RC; -BRIM.2 BOTHEYE; -CLON0.1T PO; -CLOP75TA33 PO; -ESCI10TA MT; -GLIM4TAB36 MT; -HYDR-4001 PO; -LISI10TA26 MT; -METF-874 MT; -MOM MT; -MULT-624 PO; -NA P230E RC; -SUMA50TA16 PO; -TEMA15CA5 MT; -TOPUD PO
[2021-08-06 21:42] LABS: CLARITY URINE CLEAR (CLEAR); COLOR URINE YELLOW (YELLOW); KETONES URINE NEGATIVE (NEGATIVE); LEUKOCYTE ESTERASE URINE TRACE (NEGATIVE); NITRITE URINE NEGATIVE (NEGATIVE); OCCULT BLOOD URINE 2+ (NEGATIVE); PH URINE 7.5 (4.5-8.0); PROTEIN URINE TRACE (NEGATIVE); SPECIFIC GRAVITY URINE 1.012 (1.005-1.030); UROBILINOGEN URINE 0.2 E.U./dL (0.2-1.0)
[2021-08-06 21:53] LABS: *AMPHETAMINES SCREEN URINE NEGATIVE (NEGATIVE); *BARBITURATES SCREEN URINE NEGATIVE (NEGATIVE); *BENZODIAZEPINES SCREEN URINE NEGATIVE (NEGATIVE); *COCAINE SCREEN URINE NEGATIVE (NEGATIVE)
[2021-08-06 21:54] LABS: CANNABINOID URINE SCREEN NEGATIVE (NEGATIVE); METHADONE URINE SCREEN NEGATIVE (NEGATIVE); OPIATES URINE SCREEN NEGATIVE (NEGATIVE); PHENCYCLIDINE URINE SCREEN NEGATIVE (NEGATIVE)
[2021-08-06 21:58] LABS: CHLORIDE 104 mEq/L (98-107)
[2021-08-06 22:01] LABS: BASOPHILS % 1.2 % (0.0-2.0); HEMATOCRIT. 45.4 % (42.0-52.0); HEMOGLOBIN. 15.2 g/dL (14.0-18.0); LYMPHOCYTES % 29.6 % (20.0-50.0); MEAN CORPUSCULAR HEMOGLOBIN 28.7 pg (28.0-32.0); MEAN CORPUSCULAR VOLUME 85.5 fL (80.0-94.0); MEAN PLATELET VOLUME 8.7 fl (7.4-10.4); MONOCYTES % 6.9 % (2.0-8.0); NEUTROPHILS % 53.3 % (40.0-76.0); PLATELET 243 x1000/uL (130-400); RED BLOOD CELL COUNT 5.31 mill/uL (4.7-6.1); RED CELL DISTRIBUTION WIDTH 13.9 % (11.6-14.6)
[2021-08-06 22:07] LABS: ETHANOL BLOOD < 10 mg/dL
[2021-08-06] MEDS ORDERED: IOHEXOL-350 100 ML BOTTLE ONE (23:17)
[2021-08-07 10:20] VITALS: BP 121/75
[2021-08-07 12:00] VITALS: BP 110/62
[2021-08-07] MEDS ORDERED: ONDANSETRON HCL 4MG/2ML INJ IV PRN (15:45)
[2021-08-07] MEDS ORDERED: MAGNESIUM/ALUMINUM HYDROXIDE/SIMETHICONE 30ML UDC PO PRN (15:45)
[2021-08-07] MEDS ORDERED: GUAIFENESIN 200MG/10ML SUGAR FREE UDC PO PRN (15:45)
[2021-08-07] MEDS ORDERED: CLONIDINE 0.1MG TABLET PO PRN (15:45)
[2021-08-07] MEDS ORDERED: ACETAMINOPHEN 325MG TABLET PO PRN (15:45)
[2021-08-07 16:00] VITALS: BP 104/54
[2021-08-07] MEDS: ENOXAPARIN 40MG/0.4ML SYR SUBCUT SCH (17:15)
[2021-08-07] MEDS: HYDROCODONE/ACETAMINOPHEN 5/325MG TABLET PO PRN (17:16)
[2021-08-07] MEDS ORDERED: LORAZEPAM 2MG/ML CPJ IV NR (19:00)
[2021-08-07] MEDS ORDERED: LORAZEPAM 2MG/ML CPJ IV PRN ×2 (19:00)
[2021-08-07] MEDS ORDERED: LORAZEPAM 2MG/ML CPJ IV SCH (19:00)
[2021-08-07 20:00] VITALS: BP_SYST 103; BP_SYST 137; BP_DIAS 57; BP_DIAS 93
[2021-08-07] MEDS: ACETAMINOPHEN 325MG TABLET PO PRN (20:18)
[2021-08-07] MEDS ORDERED: NALOXONE HCL 0.4MG/ML VIAL IV PRN (21:30)
[2021-08-08] VITALS: BP 96/65
[2021-08-08 04:00] VITALS: BP 104/60
[2021-08-08] MEDS: ACETAMINOPHEN 325MG TABLET PO PRN ×2 (04:27→20:45)
[2021-08-08 06:26] LABS: MEAN PLATELET VOLUME 8.6 fl (7.4-10.4); RED BLOOD CELL COUNT 4.94 mill/uL (4.7-6.1)
[2021-08-08 06:30] LABS: BASOPHILS % 1.1 % (0.0-2.0); EOSINOPHILS % 9.9 % (0.0-5.0); HEMOGLOBIN. 14.2 g/dL (14.0-18.0); MEAN CORPUSCULAR HEMOGLOBIN 28.7 pg (28.0-32.0); MEAN CORPUSCULAR VOLUME 84.9 fL (80.0-94.0); MONOCYTES % 7.1 % (2.0-8.0); NEUTROPHILS % 44.9 % (40.0-76.0); PLATELET 246 x1000/uL (130-400)
[2021-08-08 08:00] VITALS: BP 109/68
[2021-08-08 12:00] VITALS: BP 102/72
[2021-08-08] MEDS: HYDROCODONE/ACETAMINOPHEN 5/325MG TABLET PO PRN (12:51)
[2021-08-08 14:37] LABS: CHLORIDE 107 mEq/L (98-107)
[2021-08-08 16:00] VITALS: BP 100/60
[2021-08-08] MEDS: ENOXAPARIN 40MG/0.4ML SYR SUBCUT SCH (17:43)
[2021-08-08 19:27] LABS: PHOSPHORUS 3.8 mg/dL (2.5-4.9)
[2021-08-08 20:00] VITALS: BP 104/54
[2021-08-08 20:28] LABS: FOLIC ACID (FOLATE) SERUM 16.7 ng/mL (>5.38)
[2021-08-09] VITALS: BP 118/64
[2021-08-09 04:00] VITALS: BP 107/74
[2021-08-09] MEDS: ACETAMINOPHEN 325MG TABLET PO PRN ×2 (05:35→21:07)
[2021-08-09 08:00] VITALS: BP 109/69
[2021-08-09] MEDS ORDERED: ATOR40TA70 PO (11:46)
[2021-08-09] MEDS ORDERED: METF-416 PO (11:46)
[2021-08-09] MEDS ORDERED: CLOP75TA33 PO (11:46)
[2021-08-09] MEDS ORDERED: SUMA50TA16 PO (11:46)
[2021-08-09] MEDS ORDERED: GLIM4TAB36 PO (11:46)
[2021-08-09] MEDS ORDERED: METO25TA6 PO (11:46)
[2021-08-09] MEDS ORDERED: LISI10TA26 PO (11:46)
[2021-08-09] MEDS ORDERED: BRIM15DR2 EACHEYE (11:46)
[2021-08-09 12:00] VITALS: BP 118/76
[2021-08-09] MEDS: CLOPIDOGREL 75MG TABLET PO SCH (12:13)
[2021-08-09] MEDS: ASPIRIN 81MG TABLET PO SCH (12:13)
[2021-08-09] MEDS ORDERED: POLYVINYL ALCOHOL OPHTH DROPS 15ML BOTHEYE PRN (12:45)
[2021-08-09 16:00] VITALS: BP 108/71
[2021-08-09] MEDS: ENOXAPARIN 40MG/0.4ML SYR SUBCUT SCH (17:10)
[2021-08-09] MEDS: CITALOPRAM HYDROBROMIDE 10MG TABLET PO SCH (17:10)
[2021-08-09] MEDS: HYDROXYZINE 25MG TABLET PO PRN (21:06)
[2021-08-09] MEDS: ATORVASTATIN CALCIUM 40MG TABLET PO SCH (21:07)
[2021-08-10] VITALS: BP 120/77
[2021-08-10 04:00] VITALS: BP 132/86
[2021-08-10 08:00] VITALS: BP 118/74
[2021-08-10] MEDS: CITALOPRAM HYDROBROMIDE 10MG TABLET PO SCH (08:52)
[2021-08-10] MEDS: CLOPIDOGREL 75MG TABLET PO SCH (08:52)
[2021-08-10] MEDS: ASPIRIN 81MG TABLET PO SCH (08:52)
[2021-08-10 11:32] VITALS: BP 114/81
[2021-08-10] MEDS: HYDROCODONE/ACETAMINOPHEN 5/325MG TABLET PO PRN (12:17)
[2021-08-10] MEDS ORDERED: MAGNESIUM HYDROXIDE 400MG/5ML 30ML UDC PO PRN (13:30)
[2021-08-10] MEDS: POLYETHYLENE GLYCOL 3350 (17GM) 1 DOSE PACK PO SCH (14:38)
[2021-08-10 16:00] VITALS: BP 116/70
[2021-08-10] MEDS: ENOXAPARIN 40MG/0.4ML SYR SUBCUT SCH (18:15)
[2021-08-10 20:00] VITALS: BP 137/96
[2021-08-10] MEDS: ATORVASTATIN CALCIUM 40MG TABLET PO SCH (21:55)
[2021-08-11] VITALS: BP 131/85
[2021-08-11 04:00] VITALS: BP 108/78
[2021-08-11 06:52] LABS: BASOPHILS % 1.2 % (0.0-2.0); EOSINOPHILS % 9.6 % (0.0-5.0); HEMATOCRIT. 43.3 % (42.0-52.0); HEMOGLOBIN. 14.8 g/dL (14.0-18.0); LYMPHOCYTES % 35.1 % (20.0-50.0); MEAN CORPUSCULAR HEMOGLOBIN 29.4 pg (28.0-32.0); MEAN CORPUSCULAR VOLUME 85.9 fL (80.0-94.0); MEAN PLATELET VOLUME 8.6 fl (7.4-10.4); MONOCYTES % 6.4 % (2.0-8.0); NEUTROPHILS % 47.7 % (40.0-76.0); PLATELET 230 x1000/uL (130-400); RED BLOOD CELL COUNT 5.04 mill/uL (4.7-6.1); RED CELL DISTRIBUTION WIDTH 13.8 % (11.6-14.6)
[2021-08-11 08:00] VITALS: BP 119/72
[2021-08-11 08:20] LABS: CHLORIDE 106 mEq/L (98-107); PHOSPHORUS 3.2 mg/dL (2.5-4.9)
[2021-08-11] MEDS: CITALOPRAM HYDROBROMIDE 10MG TABLET PO SCH (08:48)
[2021-08-11] MEDS: ASPIRIN 81MG TABLET PO SCH (08:48)
[2021-08-11] MEDS: POLYETHYLENE GLYCOL 3350 (17GM) 1 DOSE PACK PO SCH (08:48)
[2021-08-11] MEDS: CLOPIDOGREL 75MG TABLET PO SCH (08:48)
[2021-08-11] MEDS ORDERED: LORAZEPAM 2MG/ML CPJ IV NR (09:00)
[2021-08-11 12:00] VITALS: BP 130/80
[2021-08-11 16:00] VITALS: BP 116/89
[2021-08-11] MEDS ORDERED: POLY17PO3 PO (16:31)
[2021-08-11] MEDS ORDERED: CITA10TA16 PO (16:31)
[2021-08-11] MEDS ORDERED: HYDR-3735 PO (16:31)
[2021-08-11] MEDS ORDERED: ASPI-1497 PO (16:31)
[2021-08-11] MEDS: ENOXAPARIN 40MG/0.4ML SYR SUBCUT SCH (17:09)
[2021-08-11 20:00] VITALS: BP 106/66
[2021-08-11] MEDS: ATORVASTATIN CALCIUM 40MG TABLET PO SCH (21:31)
[2021-08-11] MEDS: HYDROXYZINE 25MG TABLET PO PRN (21:32)
[2021-08-12] VITALS: BP 104/68
[2021-08-12 04:00] VITALS: BP 102/68
[2021-08-12 08:21] VITALS: BP 109/75
[2021-08-12] MEDS: POLYETHYLENE GLYCOL 3350 (17GM) 1 DOSE PACK PO SCH (08:36)
[2021-08-12] MEDS: CITALOPRAM HYDROBROMIDE 10MG TABLET PO SCH (08:37)
[2021-08-12] MEDS: CLOPIDOGREL 75MG TABLET PO SCH (08:37)
[2021-08-12] MEDS: ASPIRIN 81MG TABLET PO SCH (08:37)
[2021-08-12 11:25] VITALS: BP 127/85
[2021-08-12 12:00] VITALS: BP 127/85
[2021-09-06] MEDS ORDERED: HYDR10SY11 PO (06:32)
[2021-09-06] MEDS ORDERED: MVI WITH MINERALS PO (06:32)
[2021-09-06] MEDS ORDERED: BISA10SU62 RC (06:32)
[2021-09-06] MEDS ORDERED: LORA-249 PO (06:32)
[2021-09-06] MEDS ORDERED: ACET-3163 PO (06:32)
[2021-09-06] MEDS ORDERED: CLON0.1T PO (06:32)
[2021-09-06] MEDS ORDERED: HYDR-4001 PO (06:32)
[2021-09-06] MEDS ORDERED: NA P230E RC (06:32)
[2021-09-06] MEDS ORDERED: ZOLP5TAB2 PO (06:32)
[2021-09-06] MEDS ORDERED: TUSSL MT (06:32)
[2021-09-06] MEDS ORDERED: HYDR10TA34 PO (06:35)
== END 2021-08-12 15:35 | DRG 347 ==
LOC: ER 19:52 → 6WST 08-07 01:16 → EDBEDREQDT 08-07 01:29 → EDBEDREQTM 08-07 01:29 → EDBEDREQSVC 08-07 01:29 → EDBEDREQ 08-07 01:29 → ENRESERV 08-07 10:56 → UNDODISIN 08-12 15:35
PROVIDERS: ADMIT Internal Medicine; ATTEND Internal Medicine
DX: M50.223 Other cervical disc displacement at C6-C7 level (principal); F03.90 Unspecified dementia, unspecified severity, without behavioral disturbance, psychotic disturbance, mood disturbance, and anxiety; F33.1 Major depressive disorder, recurrent, moderate; I42.9 Cardiomyopathy, unspecified; R20.0 Anesthesia of skin; R51.9 Headache, unspecified; I69.351 Hemiplegia and hemiparesis following cerebral infarction affecting right dominant side; E11.9 Type 2 diabetes mellitus without complications; M50.31 Other cervical disc degeneration, high cervical region; E78.00 Pure hypercholesterolemia, unspecified; E78.5 Hyperlipidemia, unspecified; F41.9 Anxiety disorder, unspecified; I10 Essential (primary) hypertension; K59.00 Constipation, unspecified; Z63.4 Disappearance and death of family member; Z79.899 Other long term (current) drug therapy
CPT/HCPCS: 36415; 70496; 70498; 70551; 71045; 72141; 80048; 80053; 80305; 80320; 81003; 82607; 82746; 82962; 83036; 83735; 84100; 84443; 84484; 85025; 93005; 97162; 97166; 99291; J1650; J2060; Q9967; G0480

== ENCOUNTER 2021-10-24 07:51 | Emergency (ER) | payer MEDICAID ==
[~2021-10-24] VITALS: Ht 177.8 cm; Wt 84.0 kg
[~2021-10-24 07:51] MED LIST changes: -ACET-2708 MT; +ACET-3163 PO; +ASPI-1497 PO; +ATOR40TA70 PO; +BISA10SU62 RC; +BRIM15DR2 EACHEYE; +CITA10TA16 PO; +CLON0.1T PO; +CLOP75TA33 PO; +GLIM4TAB36 PO; +HYDR-4001 PO; +HYDR10TA34 PO; +LISI10TA26 PO; +LORA-249 PO; +METF-416 PO; +METO25TA6 PO; +MVI WITH MINERALS PO; +NA P230E RC; +POLY17PO3 PO; +SUMA50TA16 PO; +TUSSL MT; +ZOLP5TAB2 PO
[2021-10-24] MEDS ORDERED: SODIUM CHLORIDE 0.9% 1,000 ML IV ONE (08:15)
[2021-10-24 08:57] LABS: BASOPHILS % 1.1 % (0.0-2.0); CHLORIDE 102 mEq/L (98-107); HEMATOCRIT. 40.7 % (42.0-52.0); HEMOGLOBIN. 13.5 g/dL (14.0-18.0); LYMPHOCYTES % 20.3 % (20.0-50.0); MEAN CORPUSCULAR HEMOGLOBIN 28.5 pg (28.0-32.0); MEAN CORPUSCULAR VOLUME 85.9 fL (80.0-94.0); MEAN PLATELET VOLUME 8.2 fl (7.4-10.4); MONOCYTES % 7.3 % (2.0-8.0); NEUTROPHILS % 68.3 % (40.0-76.0); PLATELET 229 x1000/uL (130-400); RED BLOOD CELL COUNT 4.74 mill/uL (4.7-6.1); RED CELL DISTRIBUTION WIDTH 15.2 % (11.6-14.6)
[2021-10-24 09:05] LABS: CREATINE KINASE 213 IU/L (39-308); ETHANOL BLOOD < 10 mg/dL
[2021-10-24] MEDS ORDERED: IBUPROFEN 800MG TABLET PO ONE (10:30)
[2021-10-24] MEDS ORDERED: ACETAMINOPHEN 325MG TABLET PO ONE (10:30)
[2021-10-24] MEDS ORDERED: DIAZEPAM 5 MG/ML 2ML CPJ IM ONE (10:45)
[2021-10-24 11:26] VITALS: BP 142/87
[2021-10-24 12:49] LABS: CLARITY URINE CLEAR (CLEAR); COLOR URINE YELLOW (YELLOW); KETONES URINE NEGATIVE (NEGATIVE); LEUKOCYTE ESTERASE URINE NEGATIVE (NEGATIVE); NITRITE URINE NEGATIVE (NEGATIVE); OCCULT BLOOD URINE 2+ (NEGATIVE); PH URINE 7.5 (4.5-8.0); PROTEIN URINE NEGATIVE (NEGATIVE); SPECIFIC GRAVITY URINE 1.018 (1.005-1.030)
[2021-10-24 13:59] LABS: *AMPHETAMINES SCREEN URINE NEGATIVE (NEGATIVE); *BARBITURATES SCREEN URINE NEGATIVE (NEGATIVE); *BENZODIAZEPINES SCREEN URINE NEGATIVE (NEGATIVE); *COCAINE SCREEN URINE NEGATIVE (NEGATIVE); CANNABINOID URINE SCREEN NEGATIVE (NEGATIVE); METHADONE URINE SCREEN NEGATIVE (NEGATIVE); OPIATES URINE SCREEN NEGATIVE (NEGATIVE); PHENCYCLIDINE URINE SCREEN NEGATIVE (NEGATIVE)
== END 2021-10-24 13:26 ==
LOC: ER 08:08
DX: F20.2 Catatonic schizophrenia (principal); I10 Essential (primary) hypertension; E78.00 Pure hypercholesterolemia, unspecified; E11.9 Type 2 diabetes mellitus without complications; Z79.899 Other long term (current) drug therapy; Z86.73 Personal history of transient ischemic attack (TIA), and cerebral infarction without residual deficits
CPT/HCPCS: 36415; 70450; 80053; 80305; 80320; 81003; 82550; 85025; 96360; 96361; 96372; 99284; J3360; J7030; G0480

== ENCOUNTER 2021-12-02 16:04 | Inpatient (IN) | payer MEDICAID ==
[~2021-12-02] VITALS: Ht 170.2 cm; Wt 81.4 kg
[2021-12-02 16:44] LABS: BASOPHILS % 2.3 % (0.0-2.0); EOSINOPHILS % 7.4 % (0.0-5.0); HEMATOCRIT. 38.1 % (42.0-52.0); HEMOGLOBIN. 12.6 g/dL (14.0-18.0); LYMPHOCYTES % 23.6 % (20.0-50.0); MEAN CORPUSCULAR HEMOGLOBIN 28.4 pg (28.0-32.0); MEAN CORPUSCULAR VOLUME 85.9 fL (80.0-94.0); MEAN PLATELET VOLUME 7.5 fl (7.4-10.4); MONOCYTES % 5.9 % (2.0-8.0); NEUTROPHILS % 60.8 % (40.0-76.0); PLATELET 477 x1000/uL (130-400); RED BLOOD CELL COUNT 4.44 mill/uL (4.7-6.1); RED CELL DISTRIBUTION WIDTH 14.8 % (11.6-14.6)
[2021-12-02 16:46] LABS: CHLORIDE 105 mEq/L (98-107)
[2021-12-02 16:58] LABS: CREATINE KINASE 62 IU/L (39-308)
[2021-12-02 17:24] LABS: CLARITY URINE CLOUDY (CLEAR); COLOR URINE RED (YELLOW); KETONES URINE NEGATIVE (NEGATIVE); LEUKOCYTE ESTERASE URINE 3+ (NEGATIVE); NITRITE URINE NEGATIVE (NEGATIVE); OCCULT BLOOD URINE 3+ (NEGATIVE); PH URINE 6.5 (4.5-8.0); PROTEIN URINE 2+ (NEGATIVE); SPECIFIC GRAVITY URINE 1.022 (1.005-1.030)
[2021-12-02] MEDS ORDERED: KETOROLAC 15MG/ML VIAL IV NR (18:30)
[2021-12-02] MEDS ORDERED: IOHEXOL-350 100 ML BOTTLE ONE (18:36)
[2021-12-02] MEDS ORDERED: CEFTRIAXONE 1 G PREMIX 50 ML IV ONE (21:00)
[2021-12-03] MEDS: LORAZEPAM 1MG TABLET PO PRN ×2 (00:12→16:17)
[2021-12-03] MEDS: HYDROCODONE/ACETAMINOPHEN 5/325MG TABLET PO PRN ×3 (00:12→16:17)
[2021-12-03 00:30] VITALS: BP 105/66
[2021-12-03] MEDS ORDERED: DEXTROSE 50% WATER 50ML SYRINGE IV PRN (02:45)
[2021-12-03] MEDS ORDERED: HYDROCODONE/ACETAMINOPHEN 5/325MG TABLET PO PRN (02:45)
[2021-12-03] MEDS ORDERED: NALOXONE HCL 0.4MG/ML VIAL IV PRN (03:00)
[2021-12-03 04:00] VITALS: BP 103/64
[2021-12-03] MEDS: INSULIN LISPRO 100 UNITS/ML SUBCUT SCH ×4 (07:45→21:03)
[2021-12-03] MEDS: BLOOD SUGAR DIAGNOSTIC STRIP TEST SCH ×4 (07:45→21:03)
[2021-12-03] MEDS ORDERED: PANTOPRAZOLE 40MG DR TABLET PO SCH (09:00)
[2021-12-03 09:35] LABS: BASOPHILS % 2.1 % (0.0-2.0); HEMATOCRIT. 38.2 % (42.0-52.0); HEMOGLOBIN. 12.8 g/dL (14.0-18.0); LYMPHOCYTES % 22.6 % (20.0-50.0); MEAN CORPUSCULAR HEMOGLOBIN 28.3 pg (28.0-32.0); MEAN CORPUSCULAR VOLUME 84.5 fL (80.0-94.0); MEAN PLATELET VOLUME 7.6 fl (7.4-10.4); MONOCYTES % 6.3 % (2.0-8.0); PLATELET 446 x1000/uL (130-400); RED BLOOD CELL COUNT 4.52 mill/uL (4.7-6.1); RED CELL DISTRIBUTION WIDTH 15.1 % (11.6-14.6)
[2021-12-03 09:52] LABS: CHLORIDE 104 mEq/L (98-107)
[2021-12-03 10:03] LABS: HDL CHOLESTEROL 33 mg/dL (40-59); LDL CHOLESTEROL 68 mg/dL (5-100)
[2021-12-03] MEDS: METOPROLOL TARTRATE 25MG TABLET PO SCH ×2 (10:17→21:00)
[2021-12-03] MEDS: ENOXAPARIN 40MG/0.4ML SYR SUBCUT SCH (10:18)
[2021-12-03] MEDS: CITALOPRAM HYDROBROMIDE 10MG TABLET PO SCH (10:18)
[2021-12-03] MEDS: ASPIRIN 81MG TABLET PO SCH (10:19)
[2021-12-03 12:00] VITALS: BP 106/75
[2021-12-03 16:00] VITALS: BP 107/70
[2021-12-03] MEDS ORDERED: CEFEPIME 1,000 MG in DEXTROSE 5% WATER 50 ML IV SCH (16:00)
[2021-12-03] MEDS: CEFEPIME 1,000 MG in DEXTROSE 5% WATER 50 ML IV SCH (17:59)
[2021-12-03 20:57] VITALS: BP 102/61
[2021-12-03] MEDS: ATORVASTATIN CALCIUM 40MG TABLET PO SCH (21:02)
[2021-12-03] MEDS: TEMAZEPAM 15MG CAPSULE PO PRN (22:20)
[2021-12-04] VITALS: BP 104/70
[2021-12-04] MEDS: HYDROCODONE/ACETAMINOPHEN 5/325MG TABLET PO PRN ×3 (01:54→22:08)
[2021-12-04] MEDS: LORAZEPAM 1MG TABLET PO PRN ×3 (01:54→20:37)
[2021-12-04 04:00] VITALS: BP 110/67
[2021-12-04] MEDS: CEFEPIME 1,000 MG in DEXTROSE 5% WATER 50 ML IV SCH ×2 (05:08→17:31)
[2021-12-04] MEDS: BLOOD SUGAR DIAGNOSTIC STRIP TEST SCH ×4 (07:25→21:23)
[2021-12-04] MEDS: INSULIN LISPRO 100 UNITS/ML SUBCUT SCH ×4 (07:26→20:38)
[2021-12-04 08:00] VITALS: BP 101/77
[2021-12-04 08:18] LABS: BASOPHILS % 2.7 % (0.0-2.0); EOSINOPHILS % 10.2 % (0.0-5.0); HEMATOCRIT. 38.6 % (42.0-52.0); HEMOGLOBIN. 12.9 g/dL (14.0-18.0); LYMPHOCYTES % 22.3 % (20.0-50.0); MEAN CORPUSCULAR HEMOGLOBIN 28.4 pg (28.0-32.0); MEAN PLATELET VOLUME 7.5 fl (7.4-10.4); MONOCYTES % 6.7 % (2.0-8.0); NEUTROPHILS % 58.1 % (40.0-76.0); PLATELET 437 x1000/uL (130-400); RED BLOOD CELL COUNT 4.54 mill/uL (4.7-6.1); RED CELL DISTRIBUTION WIDTH 14.8 % (11.6-14.6)
[2021-12-04 08:34] LABS: CHLORIDE 105 mEq/L (98-107)
[2021-12-04] MEDS: METOPROLOL TARTRATE 25MG TABLET PO SCH ×2 (09:00→20:38)
[2021-12-04] MEDS: CITALOPRAM HYDROBROMIDE 10MG TABLET PO SCH (09:41)
[2021-12-04] MEDS: ASPIRIN 81MG TABLET PO SCH (09:41)
[2021-12-04] MEDS: ENOXAPARIN 40MG/0.4ML SYR SUBCUT SCH (09:42)
[2021-12-04] MEDS: FAMOTIDINE 20MG TABLET PO SCH ×2 (09:55→20:37)
[2021-12-04 12:00] VITALS: BP 112/81
[2021-12-04 16:00] VITALS: BP 116/83
[2021-12-04 20:00] VITALS: BP 115/76
[2021-12-04] MEDS: ATORVASTATIN CALCIUM 40MG TABLET PO SCH (20:37)
[2021-12-04] MEDS: TEMAZEPAM 15MG CAPSULE PO PRN (23:39)
[2021-12-05] VITALS: BP 105/71
[2021-12-05 04:00] VITALS: BP 108/64
[2021-12-05] MEDS: CEFEPIME 1,000 MG in DEXTROSE 5% WATER 50 ML IV SCH ×2 (05:38→18:35)
[2021-12-05 08:00] VITALS: BP 109/83
[2021-12-05] MEDS: INSULIN LISPRO 100 UNITS/ML SUBCUT SCH ×4 (08:10→21:08)
[2021-12-05] MEDS: BLOOD SUGAR DIAGNOSTIC STRIP TEST SCH ×4 (08:18→21:07)
[2021-12-05] MEDS: ASPIRIN 81MG TABLET PO SCH (09:58)
[2021-12-05] MEDS: FAMOTIDINE 20MG TABLET PO SCH ×2 (09:59→21:06)
[2021-12-05] MEDS: CITALOPRAM HYDROBROMIDE 10MG TABLET PO SCH (09:59)
[2021-12-05] MEDS: METOPROLOL TARTRATE 25MG TABLET PO SCH ×2 (09:59→21:00)
[2021-12-05] MEDS: LORAZEPAM 1MG TABLET PO PRN (09:59)
[2021-12-05] MEDS: ENOXAPARIN 40MG/0.4ML SYR SUBCUT SCH (10:00)
[2021-12-05 12:00] VITALS: BP 102/70
[2021-12-05] MEDS: HYDROCODONE/ACETAMINOPHEN 5/325MG TABLET PO PRN ×2 (13:03→22:00)
[2021-12-05 16:00] VITALS: BP 135/87
[2021-12-05 20:00] VITALS: BP 110/78
[2021-12-05] MEDS: ATORVASTATIN CALCIUM 40MG TABLET PO SCH (21:06)
[2021-12-05] MEDS: LORAZEPAM 0.5MG TABLET PO PRN (21:07)
[2021-12-06] VITALS: BP 113/68
[2021-12-06 04:00] VITALS: BP 131/90
[2021-12-06] MEDS: BLOOD SUGAR DIAGNOSTIC STRIP TEST SCH ×4 (06:13→21:07)
[2021-12-06] MEDS: CEFEPIME 1,000 MG in DEXTROSE 5% WATER 50 ML IV SCH ×2 (06:13→17:30)
[2021-12-06] MEDS: INSULIN LISPRO 100 UNITS/ML SUBCUT SCH ×4 (07:35→21:00)
[2021-12-06] MEDS: LORAZEPAM 0.5MG TABLET PO PRN ×2 (07:48→17:29)
[2021-12-06 08:00] VITALS: BP 113/77
[2021-12-06] MEDS: CITALOPRAM HYDROBROMIDE 10MG TABLET PO SCH (08:11)
[2021-12-06] MEDS: ASPIRIN 81MG TABLET PO SCH (08:11)
[2021-12-06] MEDS: FAMOTIDINE 20MG TABLET PO SCH ×2 (08:12→21:06)
[2021-12-06] MEDS: METOPROLOL TARTRATE 25MG TABLET PO SCH ×2 (08:12→21:06)
[2021-12-06] MEDS: ENOXAPARIN 40MG/0.4ML SYR SUBCUT SCH (08:12)
[2021-12-06] MEDS: HYDROCODONE/ACETAMINOPHEN 5/325MG TABLET PO PRN ×3 (08:21→23:33)
[2021-12-06 12:00] VITALS: BP 101/67
[2021-12-06 16:00] VITALS: BP 125/78
[2021-12-06 20:00] VITALS: BP 117/77
[2021-12-06] MEDS: TEMAZEPAM 15MG CAPSULE PO PRN (21:06)
[2021-12-06] MEDS: ATORVASTATIN CALCIUM 40MG TABLET PO SCH (21:06)
[2021-12-07] VITALS (7 sets, daily range): BP systolic 100–138; BP diastolic 64–99
[2021-12-07] MEDS: BLOOD SUGAR DIAGNOSTIC STRIP TEST SCH ×4 (05:47→21:00)
[2021-12-07] MEDS: CEFEPIME 1,000 MG in DEXTROSE 5% WATER 50 ML IV SCH ×2 (05:47→18:22)
[2021-12-07] MEDS: HYDROCODONE/ACETAMINOPHEN 5/325MG TABLET PO PRN (05:48)
[2021-12-07] MEDS: ASPIRIN 81MG TABLET PO SCH (08:44)
[2021-12-07] MEDS: INSULIN LISPRO 100 UNITS/ML SUBCUT SCH ×4 (08:44→21:00)
[2021-12-07] MEDS: METOPROLOL TARTRATE 25MG TABLET PO SCH ×2 (08:45→21:06)
[2021-12-07] MEDS: FAMOTIDINE 20MG TABLET PO SCH ×2 (08:51→21:06)
[2021-12-07] MEDS: ENOXAPARIN 40MG/0.4ML SYR SUBCUT SCH (08:51)
[2021-12-07] MEDS: CITALOPRAM HYDROBROMIDE 10MG TABLET PO SCH (08:52)
[2021-12-07] MEDS: LORAZEPAM 1MG TABLET PO PRN ×2 (08:53→18:22)
[2021-12-07] MEDS: ATORVASTATIN CALCIUM 40MG TABLET PO SCH (21:06)
== END 2021-12-07 22:16 | DRG 463 ==
LOC: ER 16:04 → EDBEDREQSVC 16:22 → EDBEDREQTM 16:22 → EDBEDREQ 16:22 → 7WST 21:04 → EDBEDREQ 21:14 → EDBEDREQTM 21:14 → ENRESERV 12-03 00:13
PROVIDERS: ADMIT Internal Medicine; ATTEND Internal Medicine
PROC: 4A00X4Z Measurement of Central Nervous Electrical Activity, External Approach (ICD-10-PCS; principal; 2021-12-04)
DX: N39.0 Urinary tract infection, site not specified (principal); G93.49 Other encephalopathy; M43.17 Spondylolisthesis, lumbosacral region; F33.1 Major depressive disorder, recurrent, moderate; E78.00 Pure hypercholesterolemia, unspecified; E11.9 Type 2 diabetes mellitus without complications; I10 Essential (primary) hypertension; Z74.01 Bed confinement status; Z86.73 Personal history of transient ischemic attack (TIA), and cerebral infarction without residual deficits
CPT/HCPCS: 36415; 70496; 70498; 70551; 71045; 72141; 72146; 72148; 74176; 80048; 80053; 80061; 81003; 82550; 82962; 83036; 83605; 83880; 84484; 85025; 93005; 95816; 97162; 99291; J0692; J0696; J1650; J1815; J1885; J7060; Q9967; A4315

== ENCOUNTER 2021-12-22 10:14 | Emergency (ER) | payer MEDICAID ==
[~2021-12-22] VITALS: Ht 160 cm; Wt 75.0 kg
[~2021-12-22 10:14] MED LIST changes: -CLON0.1T PO; -LISI10TA26 PO; -NA P230E RC; -ZOLP5TAB2 PO
[2021-12-22 12:03] LABS: BASOPHILS % 1.7 % (0.0-2.0); EOSINOPHILS % 7.9 % (0.0-5.0); HEMATOCRIT. 36.6 % (42.0-52.0); HEMOGLOBIN. 12.3 g/dL (14.0-18.0); LYMPHOCYTES % 25.4 % (20.0-50.0); MEAN CORPUSCULAR HEMOGLOBIN 28.6 pg (28.0-32.0); MEAN CORPUSCULAR VOLUME 85.3 fL (80.0-94.0); MEAN PLATELET VOLUME 7.7 fl (7.4-10.4); MONOCYTES % 6.9 % (2.0-8.0); NEUTROPHILS % 58.1 % (40.0-76.0); PLATELET 297 x1000/uL (130-400); RED BLOOD CELL COUNT 4.29 mill/uL (4.7-6.1); RED CELL DISTRIBUTION WIDTH 14.7 % (11.6-14.6)
[2021-12-22 12:07] LABS: CHLORIDE 110 mEq/L (98-107)
[2021-12-22 16:41] VITALS: BP 142/89
== END 2021-12-22 16:50 ==
LOC: ER 10:14
DX: R53.1 Weakness (principal); E11.9 Type 2 diabetes mellitus without complications; I10 Essential (primary) hypertension; I69.351 Hemiplegia and hemiparesis following cerebral infarction affecting right dominant side; E78.00 Pure hypercholesterolemia, unspecified; Z79.899 Other long term (current) drug therapy; Z79.84 Long term (current) use of oral hypoglycemic drugs
CPT/HCPCS: 36415; 71045; 80053; 85025; 99284

== ENCOUNTER 2022-04-02 11:25 | Emergency (ER) | payer MEDICAID ==
[~2022-04-02] VITALS: Ht 170.2 cm; Wt 73.0 kg
[~2022-04-02 11:25] MED LIST changes: +SULF1TAB48 MT
[2022-04-02 12:05] LABS: BASOPHILS % 1.8 % (0.0-2.0); EOSINOPHILS % 9.4 % (0.0-5.0); HEMATOCRIT. 35.9 % (42.0-52.0); HEMOGLOBIN. 11.8 g/dL (14.0-18.0); LYMPHOCYTES % 35.9 % (20.0-50.0); MEAN CORPUSCULAR HEMOGLOBIN 27.3 pg (28.0-32.0); MEAN CORPUSCULAR VOLUME 83.1 fL (80.0-94.0); MEAN PLATELET VOLUME 8.3 fl (7.4-10.4); MONOCYTES % 8.1 % (2.0-8.0); NEUTROPHILS % 44.8 % (40.0-76.0); PLATELET 254 x1000/uL (130-400); RED BLOOD CELL COUNT 4.32 mill/uL (4.7-6.1); RED CELL DISTRIBUTION WIDTH 14.6 % (11.6-14.6)
[2022-04-02 12:19] LABS: CHLORIDE 108 mEq/L (98-107)
[2022-04-02 12:24] LABS: PROTHROMBIN TIME 10.9 sec (9.6-11.0)
[2022-04-02] MEDS ORDERED: METOCLOPRAMIDE HCL 10MG TABLET PO ONE (12:30)
[2022-04-02] MEDS ORDERED: SODIUM CHLORIDE 0.9% 1,000 ML IV NR (13:15)
[2022-04-02] MEDS ORDERED: KETOROLAC 15MG/ML VIAL IV NR (13:15)
[2022-04-02] MEDS ORDERED: METOCLOPRAMIDE HCL 10MG TABLET PO NR (13:15)
[2022-04-02 15:58] LABS: CLARITY URINE CLEAR (CLEAR); COLOR URINE YELLOW (YELLOW); KETONES URINE TRACE (NEGATIVE); LEUKOCYTE ESTERASE URINE 2+ (NEGATIVE); NITRITE URINE NEGATIVE (NEGATIVE); OCCULT BLOOD URINE 3+ (NEGATIVE); PH URINE 5.5 (4.5-8.0); PROTEIN URINE TRACE (NEGATIVE); SPECIFIC GRAVITY URINE 1.017 (1.005-1.030); UROBILINOGEN URINE 0.2 E.U./dL (0.2-1.0)
[2022-04-02 16:13] LABS: *AMPHETAMINES SCREEN URINE NEGATIVE (NEGATIVE); *BARBITURATES SCREEN URINE NEGATIVE (NEGATIVE); *BENZODIAZEPINES SCREEN URINE NEGATIVE (NEGATIVE); *COCAINE SCREEN URINE NEGATIVE (NEGATIVE); CANNABINOID URINE SCREEN NEGATIVE (NEGATIVE); METHADONE URINE SCREEN NEGATIVE (NEGATIVE); OPIATES URINE SCREEN PRESUMTIVE POSITIVE (NEGATIVE); PHENCYCLIDINE URINE SCREEN NEGATIVE (NEGATIVE)
[2022-04-02] MEDS ORDERED: HYDR-4001 MT (16:18)
[2022-04-02] MEDS ORDERED: CEPH500C2 MT (16:18)
[2022-04-02 18:43] VITALS: BP 132/74
== END 2022-04-02 18:46 | disposition home or self-care (01) ==
LOC: ER 11:41
DX: R10.31 Right lower quadrant pain (principal); R82.81 Pyuria; I10 Essential (primary) hypertension; E11.9 Type 2 diabetes mellitus without complications; F32.A Depression, unspecified; F41.9 Anxiety disorder, unspecified; E78.00 Pure hypercholesterolemia, unspecified; Z98.890 Other specified postprocedural states; Z86.73 Personal history of transient ischemic attack (TIA), and cerebral infarction without residual deficits; Z79.84 Long term (current) use of oral hypoglycemic drugs; Z79.82 Long term (current) use of aspirin
CPT/HCPCS: 36415; 74176; 80053; 80305; 80320; 81003; 83690; 85025; 85610; 96361; 96374; 99284; J1885; J8597; G0480

== ENCOUNTER 2022-09-08 19:26 | Inpatient (IN) | payer MEDICAID ==
[~2022-09-08] VITALS: Ht 165.1 cm; Wt 72.2 kg
[~2022-09-08 19:26] MED LIST changes: +CEPH500C2 MT; +HYDR-4001 MT
[2022-09-08] MEDS ORDERED: ACETAMINOPHEN 325MG TABLET PO STA (19:42)
[2022-09-08] MEDS ORDERED: SODIUM CHLORIDE 0.9% 1000ML BAG (SEPSIS BOLUS) IV ONE (19:45)
[2022-09-08] MEDS ORDERED: CEFTRIAXONE 1GM PREMIX 50 ML IV ONE (19:45)
[2022-09-08] MEDS ORDERED: VANCOMYCIN 1G PREMIX 200 ML IV NR (20:00)
[2022-09-08 20:47] LABS: BASOPHILS % 0.5 % (0.0-2.0); EOSINOPHILS % 1.1 % (0.0-5.0); HEMOGLOBIN. 10.9 g/dL (14.0-18.0); LYMPHOCYTES % 13.5 % (20.0-50.0); MEAN CORPUSCULAR HEMOGLOBIN 25.8 pg (28.0-32.0); MEAN CORPUSCULAR VOLUME 78.1 fL (80.0-94.0); MEAN PLATELET VOLUME 8.2 fl (7.4-10.4); MONOCYTES % 11.9 % (2.0-8.0); PLATELET 321 x1000/uL (130-400); RED BLOOD CELL COUNT 4.23 mill/uL (4.7-6.1); RED CELL DISTRIBUTION WIDTH 16.6 % (11.6-14.6)
[2022-09-08 20:53] LABS: CHLORIDE 101 mEq/L (98-107)
[2022-09-08] MEDS ORDERED: ACETAMINOPHEN 325MG TABLET PO NR (22:45)
[2022-09-08] MEDS ORDERED: DOCUSATE SODIUM 100MG CAPSULE PO PRN (22:45)
[2022-09-08] MEDS ORDERED: HYDROCODONE/ACETAMINOPHEN 5/325MG TABLET PO PRN (22:45)
[2022-09-08] MEDS ORDERED: IPRATROPIUM/ALBUTEROL 0.5-3(2.5)MG/3ML NEB HHN PRN ×2 (22:45)
[2022-09-08] MEDS ORDERED: CLONIDINE 0.1MG TABLET PO PRN (22:45)
[2022-09-08] MEDS ORDERED: ACETAMINOPHEN 325MG TABLET PO PRN (22:45)
[2022-09-08] MEDS ORDERED: ONDANSETRON HCL 4MG/2ML INJ IV PRN (22:45)
[2022-09-08] MEDS ORDERED: NALOXONE HCL 0.4MG/ML VIAL IV PRN (23:00)
[2022-09-08] MEDS ORDERED: CEFTRIAXONE 1GM PREMIX 50 ML IV NR (23:00)
[2022-09-09 03:00] VITALS: BP 112/70
[2022-09-09 06:57] LABS: BASOPHILS % 0.7 % (0.0-2.0); EOSINOPHILS % 1.1 % (0.0-5.0); HEMATOCRIT. 32.6 % (42.0-52.0); HEMOGLOBIN. 10.7 g/dL (14.0-18.0); LYMPHOCYTES % 11.1 % (20.0-50.0); MEAN CORPUSCULAR HEMOGLOBIN 25.7 pg (28.0-32.0); MEAN CORPUSCULAR VOLUME 78.5 fL (80.0-94.0); MEAN PLATELET VOLUME 8.5 fl (7.4-10.4); MONOCYTES % 14.4 % (2.0-8.0); NEUTROPHILS % 72.7 % (40.0-76.0); PLATELET 283 x1000/uL (130-400); RED BLOOD CELL COUNT 4.15 mill/uL (4.7-6.1); RED CELL DISTRIBUTION WIDTH 16.4 % (11.6-14.6)
[2022-09-09 08:00] VITALS: BP 110/56
[2022-09-09 09:29] LABS: CHLORIDE 103 mEq/L (98-107)
[2022-09-09] MEDS: ACETAMINOPHEN 325MG TABLET PO PRN (10:11)
[2022-09-09 12:00] VITALS: BP 102/70
[2022-09-09] MEDS: PIPERACILLIN/TAZOBACTAM 3.375 G in DEXTROSE 5% WATER 50 ML IV SCH ×2 (14:34→21:01)
[2022-09-09 16:00] VITALS: BP 100/63
[2022-09-09 17:45] LABS: CLARITY URINE CLEAR (CLEAR); COLOR URINE YELLOW (YELLOW); KETONES URINE 1+ (NEGATIVE); LEUKOCYTE ESTERASE URINE 3+ (NEGATIVE); NITRITE URINE POSITIVE (NEGATIVE); OCCULT BLOOD URINE 1+ (NEGATIVE); PH URINE 6.5 (4.5-8.0); PROTEIN URINE TRACE (NEGATIVE); UROBILINOGEN URINE 0.2 E.U./dL (0.2-1.0)
[2022-09-09 20:00] VITALS: BP 129/81
[2022-09-09] MEDS ORDERED: CEFTRIAXONE 1,000 MG in DEXTROSE 5% WATER 50 ML IV SCH (23:00)
[2022-09-10] VITALS: BP 125/72
[2022-09-10 04:00] VITALS: BP 131/70
[2022-09-10 05:39] LABS: HEMATOCRIT. 29.9 % (42.0-52.0); HEMOGLOBIN. 9.9 g/dL (14.0-18.0); MEAN CORPUSCULAR HEMOGLOBIN 25.5 pg (28.0-32.0); MEAN CORPUSCULAR VOLUME 77.3 fL (80.0-94.0); MEAN PLATELET VOLUME 8.1 fl (7.4-10.4); PLATELET 290 x1000/uL (130-400); RED BLOOD CELL COUNT 3.87 mill/uL (4.7-6.1)
[2022-09-10] MEDS: PIPERACILLIN/TAZOBACTAM 3.375 G in DEXTROSE 5% WATER 50 ML IV SCH ×3 (05:41→21:25)
[2022-09-10 06:34] LABS: CHLORIDE 102 mEq/L (98-107)
[2022-09-10 08:00] VITALS: BP 102/65
[2022-09-10] MEDS: CITALOPRAM HYDROBROMIDE 10MG TABLET PO SCH (08:36)
[2022-09-10] MEDS: ASPIRIN 81MG EC TABLET PO SCH (08:36)
[2022-09-10] MEDS: ATORVASTATIN CALCIUM 40MG TABLET PO SCH (08:36)
[2022-09-10] MEDS: CLOPIDOGREL 75MG TABLET PO SCH (08:36)
[2022-09-10] MEDS: ACETAMINOPHEN 325MG TABLET PO PRN (08:41)
[2022-09-10 12:00] VITALS: BP 121/64
[2022-09-10 13:09] LABS: PLATELET ESTIMATE NORMAL
[2022-09-10 16:00] VITALS: BP 111/82
[2022-09-10 20:00] VITALS: BP 114/81
[2022-09-11] VITALS: BP 116/80
[2022-09-11 04:00] VITALS: BP 109/66
[2022-09-11] MEDS: PIPERACILLIN/TAZOBACTAM 3.375 G in DEXTROSE 5% WATER 50 ML IV SCH ×2 (05:24→13:04)
[2022-09-11 08:00] VITALS: BP 110/73
[2022-09-11] MEDS: CITALOPRAM HYDROBROMIDE 10MG TABLET PO SCH (08:59)
[2022-09-11] MEDS: ATORVASTATIN CALCIUM 40MG TABLET PO SCH (08:59)
[2022-09-11] MEDS: CLOPIDOGREL 75MG TABLET PO SCH (08:59)
[2022-09-11] MEDS: ASPIRIN 81MG EC TABLET PO SCH (09:00)
[2022-09-11 12:00] VITALS: BP 117/61
[2022-09-11] MEDS ORDERED: LEVO-65 MT (15:05)
[2022-09-11 16:00] VITALS: BP 120/75
[2022-09-11] MEDS: MEROPENEM 1,000 MG in SODIUM CHLORIDE 0.9% 100 ML IV SCH ×2 (16:20→20:23)
[2022-09-11 20:00] VITALS: BP 122/82
[2022-09-11] MEDS: LORAZEPAM 0.5MG TABLET PO PRN (20:23)
[2022-09-12] VITALS (7 sets, daily range): BP systolic 104–118; BP diastolic 59–77
[2022-09-12] MEDS: ACETAMINOPHEN 325MG TABLET PO PRN (00:25)
[2022-09-12] MEDS: LORAZEPAM 0.5MG TABLET PO PRN (03:09)
[2022-09-12] MEDS: MEROPENEM 1,000 MG in SODIUM CHLORIDE 0.9% 100 ML IV SCH ×2 (05:55→13:19)
[2022-09-12] MEDS: CLOPIDOGREL 75MG TABLET PO SCH (09:05)
[2022-09-12] MEDS: CITALOPRAM HYDROBROMIDE 10MG TABLET PO SCH (09:05)
[2022-09-12] MEDS: ASPIRIN 81MG EC TABLET PO SCH (09:05)
[2022-09-12] MEDS: ATORVASTATIN CALCIUM 40MG TABLET PO SCH (09:05)
== END 2022-09-12 20:49 | DRG 720 ==
LOC: ER 19:26 → MICUSO 20:45 → ENRESERV 22:50 → 8WST 09-09 02:38
PROVIDERS: ADMIT Family Medicine Adult Medicine; ATTEND Family Medicine Adult Medicine
DX: A41.9 Sepsis, unspecified organism (principal); D50.9 Iron deficiency anemia, unspecified; D72.821 Monocytosis (symptomatic); E11.9 Type 2 diabetes mellitus without complications; E78.00 Pure hypercholesterolemia, unspecified; Z20.822 Contact with and (suspected) exposure to COVID-19; N39.0 Urinary tract infection, site not specified; Z79.84 Long term (current) use of oral hypoglycemic drugs; Z87.442 Personal history of urinary calculi; Z86.73 Personal history of transient ischemic attack (TIA), and cerebral infarction without residual deficits
CPT/HCPCS: 36415; 71045; 80048; 80053; 81003; 82962; 83036; 83605; 84145; 85025; 87186; 87426; 87804; 93005; 99291; J0696; J2185; J2543; J7030; J7050; J7060

== ENCOUNTER 2023-11-08 17:29 | Emergency (ER) | payer MEDICAID ==
[~2023-11-08] VITALS: Ht 172.7 cm; Wt 75.0 kg
[~2023-11-08 17:29] MED LIST changes: -CEPH500C2 MT; -HYDR-4001 MT; +LEVO-65 MT; -SULF1TAB48 MT
[2023-11-08 17:36] VITALS: O2SAT 99
[2023-11-08] MEDS: ACETAMINOPHEN 325MG TABLET PO ONE (17:45)
[2023-11-08 18:12] LABS: CLARITY URINE CLEAR (CLEAR); COLOR URINE YELLOW (YELLOW); GLUCOSE URINE NEGATIVE (NEGATIVE); KETONES URINE NEGATIVE (NEGATIVE); LEUKOCYTE ESTERASE URINE TRACE (NEGATIVE); NITRITE URINE NEGATIVE (NEGATIVE); OCCULT BLOOD URINE 3+ (NEGATIVE); PH URINE 6.5 (4.5-8.0); PROTEIN URINE NEGATIVE (NEGATIVE); SPECIFIC GRAVITY URINE 1.013 (1.005-1.030)
[2023-11-08 18:21] LABS: BASOPHILS % 0.8 % (0.0-2.0); HEMATOCRIT. 39.6 % (42.0-52.0); HEMOGLOBIN. 13.3 g/dL (14.0-18.0); LYMPHOCYTES % 28.4 % (20.0-50.0); MEAN CORPUSCULAR HGB CONC 33.6 g/dL (31.0-37.0); MEAN CORPUSCULAR VOLUME 86.5 fL (80.0-94.0); MEAN PLATELET VOLUME 8.1 fl (7.4-10.4); MONOCYTES % 5.6 % (2.0-8.0); NEUTROPHILS % 53.2 % (40.0-76.0); PLATELET 267 x1000/uL (130-400); RED BLOOD CELL COUNT 4.58 mill/uL (4.7-6.1); RED CELL DISTRIBUTION WIDTH 14.8 % (11.6-14.6); WHITE BLOOD COUNT 7.5 x1000/uL (4.5-11.0)
[2023-11-08 18:27] LABS: CHLORIDE 102 mEq/L (98-107); POTASSIUM 3.8 mEq/L (3.5-5.1); SODIUM 135 mEq/L (136-145)
[2023-11-08 18:28] LABS: CALCIUM 9.4 mg/dL (8.7-10.4); CARBON DIOXIDE 26 mEq/L (21-32)
[2023-11-08 18:33] LABS: GLUCOSE 118 mg/dL (70-105); UREA NITROGEN BLOOD 12 mg/dL (9-23)
[2023-11-08 18:35] LABS: ALANINE AMINOTRANSFERASE 17 IU/L (10-49); ALBUMIN 4.6 g/dL (3.2-4.8); ASPARTATE AMINOTRANSFERASE 27 IU/L (<34); BILIRUBIN TOTAL 0.4 mg/dL (0.1-1.0); PROTEIN TOTAL 7.3 g/dL (6.0-8.3)
[2023-11-08 18:35] LABS: BACTERIA URINE TRACE; RBC URINE 25-50 /hpf (0-2); SQUAMOUS EPITHELIAL CELL URINE RARE /lpf (RARE/1+); WBC URINE 0-2 /hpf (0-2)
[2023-11-09] MEDS ORDERED: TAMS-11 MT (00:35)
[2023-11-09] MEDS ORDERED: ONDA4TAB11 PO (00:36)
[2023-11-09] MEDS ORDERED: OXYC-100 MT (00:37)
[2023-11-09 01:50] VITALS: BP 128/67; PULSE 68; RESP 12; TEMP 97.3
== END 2023-11-09 03:25 | disposition home or self-care (01) ==
LOC: ER 17:29
DX: R31.9 Hematuria, unspecified (principal); R51.9 Headache, unspecified; E11.9 Type 2 diabetes mellitus without complications; I10 Essential (primary) hypertension; Z87.440 Personal history of urinary (tract) infections; Z79.899 Other long term (current) drug therapy
CPT/HCPCS: 36415; 74176; 80053; 81003; 85025; 99285